=== PATIENT | female | born 1960 | race Caucasian/White ===

== ENCOUNTER 2022-08-25 04:07 | Day surgery (SDC) | payer OTHER ==
[2022-08-23 13:05] VITALS: BMI 35.4
[2022-08-25] MEDS ORDERED: BUPIVACAINE HCL/PF 0.5% (5MG/ML) 10 ML VIAL ONE (07:20)
[2022-08-25] MEDS ORDERED: PROPOFOL 20 ML ONE (07:53)
[2022-08-25] MEDS ORDERED: LIDOCAINE HCL 1%, 10 MG/ML (20ML VIAL) INF ONE ×3 (07:53→08:35)
[2022-08-25] MEDS ORDERED: BUPIVACAINE HCL/PF 0.5% (5MG/ML) 10 ML VIAL NR ONE ×2 (07:53→08:35)
[2022-08-25] MEDS ORDERED: oxyCODONE HCL 5 MG TABLET PO PRN (07:56)
[2022-08-25] MEDS ORDERED: ONDANSETRON 4 MG/2 ML VIAL IVPUSH PRN (07:56)
[2022-08-25] MEDS ORDERED: LACTATED RINGERS SOLUTION 1,000 ML IV SCH (08:00)
[2022-08-25] MEDS ORDERED: ceFAZolin 2 GRAM PREMIX BAG IVPB ONE (08:24)
[2022-08-25 10:31] VITALS: RESP 20
[2022-08-25] MEDS ORDERED: oxyCODONE HCL 5 MG TABLET ONE (12:36)
[2022-08-25 13:45] VITALS: BP 128/75; PULSE 63; TEMP 96.8
== END 2022-08-25 13:51 | disposition home or self-care (01) ==
LOC: JASU-SURG 04:07
PROVIDERS: ATTEND Orthopaedic Surgery
PROC: 0SBD4ZZ Excision of Left Knee Joint, Percutaneous Endoscopic Approach (ICD-10-PCS; principal; 2022-08-25 08:00)
DX: S83.272A Complex tear of lateral meniscus, current injury, left knee, initial encounter (principal); X58.XXXA Exposure to other specified factors, initial encounter; Y93.9 Activity, unspecified; Y92.9 Unspecified place or not applicable; Y99.9 Unspecified external cause status
CPT/HCPCS: 94760

== ENCOUNTER 2023-03-16 04:07 | Day surgery (SDC) | payer OTHER ==
[2023-03-15 15:11] VITALS: BMI 33.6
[~2023-03-16 04:07] MED LIST: LIDOCAINE HCL 1%, 10 MG/ML (20ML VIAL) INF ONE
[2023-03-16 09:24] VITALS: RESP 20
[2023-03-16] MEDS ORDERED: LIDOCAINE HCL 1%, 10 MG/ML (20ML VIAL) INF ONE (10:19)
[2023-03-16 12:53] VITALS: BP 116/67; PULSE 65; TEMP 97.1
== END 2023-03-16 13:02 | disposition home or self-care (01) ==
LOC: JASU-SURG 04:07
PROVIDERS: ATTEND Orthopaedic Surgery
PROC: 015D0ZZ Destruction of Femoral Nerve, Open Approach (ICD-10-PCS; principal; 2023-03-16 11:00)
DX: M17.12 Unilateral primary osteoarthritis, left knee (principal)

== ENCOUNTER 2024-09-03 21:43 | Emergency (ER) | payer OTHER ==
[2024-09-03 22:09] VITALS: BP 145/67; PULSE 67; RESP 19; TEMP 97.2; BMI 34.4
== END 2024-09-03 23:15 | disposition home or self-care (01) ==
LOC: FER 21:43
DX: M79.662 Pain in left lower leg (principal); M54.50 Low back pain, unspecified; M25.552 Pain in left hip
CPT/HCPCS: 73502-TC-LT-FY; 99283-25